=== PATIENT | male | born 2000 | race Caucasian/White ===

== ENCOUNTER 2018-10-10 05:46 | Emergency (ER) | payer OTHER ==
[2018-10-10] MEDS ORDERED: Ibuprofen 200 MG TAB ONE ×2 (05:53→05:55)
== END 2018-10-10 08:05 | disposition home or self-care (01) ==
LOC: ERS 05:46
DX: J10.1 Influenza due to other identified influenza virus with other respiratory manifestations (principal)
CPT/HCPCS: 87804; 99283